=== PATIENT | female | born 1955 ===

== ENCOUNTER 2016-12-21 14:19 | Emergency (ER) | payer MEDICAID ==
[2016-12-21 14:19] VITALS: BMI 33.3
[2016-12-21 14:25] VITALS: RESP 18
--- NOTE | 2016-12-21 15:33 | C.PDOC ---
History Of Present Illness 61 y/o female, history of diabetes, presents to ED with c/o chest pain since this morning described as a diffuse burning sensation. Patient otherwise denies fevers, chills, nausea, vomiting, diarrhea, SOB, or other associated symptoms. Time Seen by Provider: 12/21/16 15:16 Chief Complaint (Nursing): Shortness Of Breath History Per: Patient History/Exam Limitations: no limitations Onset/Duration Of Symptoms: Hrs Current Symptoms Are (Timing): Still Present Quality: Burning Associated Symptoms: Chest Pain. denies: Fever, Chills, Productive Cough, Dizziness, Anxiety Recent travel outside of the [place]: No Past Medical History Reviewed: Historical Data, Nursing Documentation, Vital Signs Vital Signs: Last Vital Signs Temp 98.3 F 12/21/16 16:33 Pulse 82 12/21/16 16:33 Resp 18 12/21/16 16:33 BP 126/77 12/21/16 16:33 Pulse Ox 97 12/21/16 16:33 - Medical History PMH: Asthma, Diabetes, HTN, Hypercholesterolemia, Hypothyroidism Surgical History: Cholecystectomy Family History: States: Unknown Family Hx - Social History Hx Tobacco Use: No Hx Alcohol Use: No Hx Substance Use: No - Immunization History Hx Tetanus Toxoid Vaccination: No Hx Influenza Vaccination: No Hx Pneumococcal Vaccination: No Review Of Systems Except As Marked, All Systems Reviewed And Found Negative. Constitutional: Negative for: Fever, Chills Cardiovascular: Positive for: Chest Pain. Negative for: Palpitations Respiratory: Negative for: Cough, Shortness of Breath, Wheezing Gastrointestinal: Negative for: Nausea, Vomiting, Abdominal Pain Skin: Negative for: Rash Neurological: Negative for: Headache, Dizziness Physical Exam - Physical Exam Appears: Non-toxic, No Acute Distress Skin: Normal Color, Warm, Dry Head: Atraumatic, Normacephalic Oral Mucosa: Moist Neck: Normal ROM, Supple Chest: Symmetrical Cardiovascular: Rhythm Regular Respiratory: No Rales, No Rhonchi, No Wheezing, Other (mildly diminished breath sounds) Gastrointestinal/Abdominal: Soft, No Tenderness Back: Normal Inspection Extremity: Normal ROM, Capillary Refill (< 2 sec.) Neurological/Psych: Oriented x3, Normal Speech, Normal Cognition ED Course And Treatment - Laboratory Results Result Diagrams: 12/21/16 15:50 12/21/16 15:50 ECG: Interpreted By Me ECG Rhythm: Sinus Rhythm Interpretation Of ECG: no ST/T wave changes Rate From EC (bpm) O2 Sat by Pulse Oximetry: 100 (RA) Pulse Ox Interpretation: Normal Medical Decision Making Medical Decision Making: cp r/o acs - labs imaging pending Plan: * Aspirin 325mg PO * EKG * CxR * Bloodwork * Reassess Progress Notes: pt states all symptoms resolved. trop neg x 1 >6 hrs of pain. requests futher obs in hospital to r/o acs. pt refuses, states she will return with worsening symptoms or concerns Disposition - Disposition [facility]Outside[facility] Mark Donato MD [Staff Provider] - Disposition: HOME/ ROUTINE Disposition Time: 16:26 Condition: STABLE Additional Instructions: please follow up with your doctor. return to er with worsening symptoms or concerns. you are declining observation in the hospital. you are able to return at any point with any concern. Instructions: Chest Pain (ED) Forms: [employer] (Croatian) Print Language: LITHUANIAN - Clinical Impression Clinical Impression: Chest pain - Scribe Statement The provider has reviewed the documentation as recorded by the Scribange Sorto All medical record entries made by the Scribe were at my direction and personally dictated by me. I have reviewed the chart and agree that the record accurately reflects my personal performance of the history, physical exam, medical decision making, and the department course for this patient. I have also personally directed, reviewed, and agree with the discharge instructions and disposition.
--- NOTE | 2016-12-21 15:52 | RAD ---
HISTORY: chest pain COMPARISON: 12/17/2016 TECHNIQUE: Chest PA and lateral FINDINGS: LUNGS: No active pulmonary disease. PLEURA: There is a small right pleural effusion CARDIOVASCULAR: Normal. OSSEOUS STRUCTURES: No significant abnormalities. VISUALIZED UPPER ABDOMEN: Normal. OTHER FINDINGS: None. IMPRESSION: No active disease.
[2016-12-21 15:58] LABS: BASO # 0.1 K/uL (0.0-0.2); EOS # 0.1 K/uL (0.0-0.7); EOS % 1.4 % (0.0-4.0); HEMATOCRIT 40.4 % (34.0-47.0); LYMPH # 1.8 K/uL (1.0-4.3); LYMPH % 25.4 % (20.0-40.0); MEAN CELL VOLUME 86.8 fL (81.0-99.0); MEAN CORPUSCULAR HEMOGLOBIN 29.2 pg (27.0-31.0); MEAN CORPUSCULAR HGB CONC 33.6 g/dL (33.0-37.0); MEAN PLATELET VOLUME 8.8 fL (7.2-11.7); MONO # 0.4 K/uL (0.0-0.8); RED CELL DISTRIBUTION WIDTH 13.5 % (11.5-14.5); WHITE BLOOD COUNT 7.1 K/uL (4.8-10.8)
[2016-12-21 15:59] LABS: RBC URINE < 1 /hpf (0-3); URINE BILIRUBIN NEGATIVE (NEGATIVE); URINE BLOOD NEGATIVE (NEGATIVE); URINE COLOR Straw (YELLOW); URINE GLUCOSE (UA) NORMAL (Normal); URINE KETONE NEGATIVE (NEGATIVE); URINE LEUKOCYTE ESTERASE NEG Leu/uL (Negative); URINE PROTEIN NEGATIVE (NEGATIVE); URINE UROBILINOGEN NORMAL mg/dL (0.2-1.0); WBC URINE < 1 /hpf (0-5)
[2016-12-21 16:04] LABS: CHLORIDE 103 mmol/L (98-107)
[2016-12-21 16:05] LABS: INR 0.9; POTASSIUM 3.8 mmol/L (3.6-5.2); SODIUM 139 mmol/L (132-148)
[2016-12-21 16:07] LABS: GFR AFRICAN-AMERICAN > 60
[2016-12-21 16:08] LABS: ALB/GLOB RATIO 1.6 (1.0-2.1); ALKALINE PHOSPHATASE 96 U/L (38-126); ALT/SGPT 33 U/L (9-52); AST/SGOT 22 U/L (14-36); BILIRUBIN,TOTAL 0.5 mg/dL (0.2-1.3); BLOOD UREA NITROGEN 15 mg/dL (7-17); CALCIUM 9.4 mg/dl (8.6-10.4); CARBON DIOXIDE 24 mmol/L (22-30); GLUCOSE,RANDOM 90 mg/dL (65-105); TOTAL PROTEIN 7.2 g/dL (6.3-8.3)
[2016-12-21 16:34] VITALS: BP 126/77; PULSE 82; TEMP 98.3
[2016-12-21 16:37] VITALS: O2SAT 100
--- NOTE | 2016-12-22 13:03 | CARD ---
APPROVED REPORT EKG Measurement Heart [id number] <Conclusion> Normal sinus rhythm Left axis deviation Minimal voltage criteria for LVH, may be normal variant Abnormal ECG
== END 2016-12-21 16:34 | disposition home or self-care (01) ==
LOC: C.ER 14:19
DX: R07.9 Chest pain, unspecified (principal); E11.9 Type 2 diabetes mellitus without complications

== ENCOUNTER 2017-05-25 09:03 | Emergency (ER) | payer MEDICAID ==
[2017-05-25 09:04] VITALS: BMI 33.3
[2017-05-25 09:16] VITALS: BP 141/70; PULSE 84; RESP 16; TEMP 97.8; O2SAT 98
--- NOTE | 2017-05-25 09:59 | C.PDOC ---
History Of Present Illness Dimitrios Villarreal is a 61 year old female, with a past medical history of diabetes and hypertension, who presents to the emergency department complaining of b/l sacral iliac pain onset for x3 days. Patient is currently Tylenol and Gabapentin for her peripheral neuropathy and is concerned it might be a renal problem. Patient denies any injury or other medical complaints. PMD: None provided. Time Seen by Provider: 05/25/17 09:55 Chief Complaint (Nursing): Back Pain History Per: Patient History/Exam Limitations: no limitations Onset/Duration Of Symptoms: Days (x3) Current Symptoms Are (Timing): Still Present Quality Of Discomfort: "Pain" Associated Symptoms: None Past Medical History Reviewed: Historical Data, Nursing Documentation, Vital Signs Vital Signs: Last Vital Signs Temp 97.8 F 05/25/17 09:11 Pulse 84 05/25/17 09:11 Resp 16 05/25/17 09:11 BP 141/70 05/25/17 09:11 Pulse Ox 98 05/25/17 09:59 - Medical History PMH: Asthma, Diabetes, HTN, Hypercholesterolemia, Hypothyroidism Surgical History: Cholecystectomy Family History: States: Unknown Family Hx - Social History Hx Tobacco Use: No Hx Alcohol Use: No Hx Substance Use: No - Immunization History Hx Tetanus Toxoid Vaccination: No Hx Influenza Vaccination: No Hx Pneumococcal Vaccination: No Review Of Systems Musculoskeletal: Positive for: Back Pain (b/l sacral iliac) Physical Exam - Physical Exam Appears: No Acute Distress Skin: Normal Color, Warm, Dry Head: Atraumatic, Normacephalic Eye(s): bilateral: Normal Inspection, PERRL, EOMI Neck: Normal ROM Chest: Symmetrical Cardiovascular: Rhythm Regular, No Murmur Respiratory: Normal Breath Sounds, No Wheezing Gastrointestinal/Abdominal: Normal Exam, Soft, No Tenderness, No Guarding, No Rebound Back: No CVA Tenderness (No tenderness in renal area), No Paraspinal Tenderness (No spinal tenderness), Other (b/l tender sacral area. ) Extremity: Normal ROM, No Pedal Edema, No Deformity, No Swelling Neurological/Psych: Oriented x3 Gait: Steady ED Course And Treatment O2 Sat by Pulse Oximetry: 98 (RA) Pulse Ox Interpretation: Normal Medical Decision Making Medical Decision Making: Initial Impression: Muscle strain Initial Plan: --Motrin tab 600 mg PO --reevaluation low back strain/sacro-iliac no spinal issues NOT renal ice and NSAIDS educated. Disposition Doctor Will See Patient In The: Office Counseled Patient/Family Regarding: Studies Performed, Diagnosis - Disposition Referrals: [facility] [Outside] Disposition: HOME/ ROUTINE Disposition Time: 09:59 Condition: GOOD Additional Instructions: ibuprofeno 400-600 mg cada 6 horas tye necessario bolsa de hielo (o' bolsa de verduras congeladas) 1/2 hora cada hora NADA CALIENTE! Sigue en [facility] tye necessario Instructions: Muscle Strain (ED) Forms: [employer] (Setswana) Print Language: OCCITAN - Clinical Impression Clinical Impression: Low back strain - Scribe Statement Dion Malcolm Provider Attestation: All medical record entries made by the Scribe were at my direction and personally dictated by me. I have reviewed the chart and agree that the record accurately reflects my personal performance of the history, physical exam, medical decision making, and the department course for this patient. I have also personally directed, reviewed, and agree with the discharge instructions and disposition.
== END 2017-05-25 10:08 | disposition home or self-care (01) ==
LOC: C.ER 09:03
DX: S39.012A Strain of muscle, fascia and tendon of lower back, initial encounter (principal); X58.XXXA Exposure to other specified factors, initial encounter; E11.9 Type 2 diabetes mellitus without complications; I10 Essential (primary) hypertension; E03.9 Hypothyroidism, unspecified; E78.00 Pure hypercholesterolemia, unspecified

== ENCOUNTER 2018-08-30 14:12 | Emergency (ER) | payer MEDICAID ==
[2018-08-30 14:12] VITALS: BMI 33.3
[2018-08-30 14:21] VITALS: O2SAT 98
--- NOTE | 2018-08-30 15:36 | RAD ---
Date of service: 08/30/2018 PROCEDURE: Right Knee Radiographs. HISTORY: pain COMPARISON: None. TECHNIQUE: Four views obtained. FINDINGS: BONES: Normal. No fracture. JOINTS: Normal. No osteoarthritis. JOINT EFFUSION: None. OTHER FINDINGS: None. IMPRESSION: Normal radiographs of the right knee.
--- NOTE | 2018-08-30 15:45 | C.PDOC ---
History Of Present Illness 62 year old female presents to ED with complaint of experiencing a burning sensation to the medial aspect of her right knee for the past month. Patient states that sometime ago she had an accident and now uses a walker. Patient has been taking ibuprofen for pain, but didn't take anything today. She denies fall, injury, head trauma , headache, numbness, weakness, or rash. Chief Complaint (Nursing): Lower Extremity Problem/Injury History Per: Patient History/Exam Limitations: no limitations Onset/Duration Of Symptoms: Other (1 month) Current Symptoms Are (Timing): Still Present Past Medical History Reviewed: Historical Data, Nursing Documentation, Vital Signs Vital Signs: Last Vital Signs Temp 98.6 F 08/30/18 14:20 Pulse 85 08/30/18 14:20 Resp 16 08/30/18 14:20 BP 125/73 08/30/18 14:20 Pulse Ox 98 08/30/18 14:20 Primary Care Provider: Terrell Alberto - Medical History PMH: Asthma, Diabetes, HTN, Hypercholesterolemia, Hypothyroidism Surgical History: Cholecystectomy Family History: States: Unknown Family Hx - Social History Hx Tobacco Use: No Hx Alcohol Use: No Hx Substance Use: No - Immunization History Hx Tetanus Toxoid Vaccination: No Hx Influenza Vaccination: No Hx Pneumococcal Vaccination: No Review Of Systems Constitutional: Negative for: Fever, Chills, Weakness Musculoskeletal: Positive for: Leg Pain (burning sensation to the right leg) Skin: Negative for: Rash Neurological: Negative for: Weakness, Numbness, Headache Physical Exam - Physical Exam Appears: Well, Non-toxic, No Acute Distress Skin: Normal Color, Warm, Dry Head: Atraumatic, Normacephalic Eye(s): bilateral: Normal Inspection Neck: Normal ROM, Supple Chest: Symmetrical Extremity: Normal ROM (Toes, ankles, and knee FROM), Tenderness (along to the medial aspect of the right knee; no joint laxity, no erythema, no edema), No Calf Tenderness, Capillary Refill (<2 seconds), No Deformity, No Swelling, Other (neurovascular intact) Pulses: Left Dorsalis Pedis: Normal, Right Dorsalis Pedis: Normal Neurological/Psych: Oriented x3, Normal Speech, Normal Cognition, Normal Motor, Normal Sensation Gait: With Assistance ED Course And Treatment O2 Sat by Pulse Oximetry: 98 (in RA) Pulse Ox Interpretation: Normal - Other Rad Right knee x-ray X-Ray: Viewed By Me Interpretation: IMPRESSION: Normal radiographs of the right knee. Medical Decision Making Medical Decision Making: Impression: 62 year old female presents to ED with complaint of experiencing a burning sensation to the medial aspect of her right knee. Initial Plan: Right knee x-ray Disposition Counseled Patient/Family Regarding: Studies Performed, Diagnosis, Need For Followup - Disposition Referrals: Terrell Alberto MD [Staff Provider] - Disposition: HOME/ ROUTINE Disposition Time: 15:40 Condition: STABLE Prescriptions: Ibuprofen [Motrin Tab] 800 mg PO TID PRN #30 tab PRN Reason: Pain, Moderate (4-7) Instructions: Chronic Knee Pain (DC) Forms: Gen Discharge Inst Citizen Of [place], [employer] (Citizen [place]) Print Language: HEBREW - Clinical Impression Clinical Impression: Knee pain - Scribe Statement The provider has reviewed the documentation as recorded by the Scribe (Marisa Castellanos) All medical record entries made by the Scribe were at my direction and personally dictated by me. I have reviewed the chart and agree that the record accurately reflects my personal performance of the history, physical exam, medical decision making, and the department course for this patient. I have also personally directed, reviewed, and agree with the discharge instructions and disposition.
[2018-08-30 15:57] VITALS: BP 124/74; PULSE 79; RESP 18; TEMP 98.1
== END 2018-08-30 15:57 | disposition home or self-care (01) ==
LOC: C.ER 14:12
DX: M25.561 Pain in right knee (principal)